=== PATIENT | male | born 1990 | race Hispanic/Latino ===

== ENCOUNTER 2018-03-12 10:10 | Inpatient (IN) | payer OTHER ==
[~2018-03-12] VITALS: Ht 175.3 cm; Wt 93.0 kg
[2018-03-12] MEDS ORDERED: ACETAMINOPHEN 325 MG TAB ONE ×2 (10:34→19:27)
[2018-03-12 10:39] LABS: BASOPHILS % (AUTO) 0.3 % (0.0-5.0); EOSINOPHILS % (AUTO) 0.1 % (0.0-8.0); HEMATOCRIT 44.5 % (42-54); LYMPHOCYTES % (AUTO) 11.3 % (21.0-51.0); MEAN CORPUSCULAR HGB CONC 33.4 g/dL (32.0-36.0); MEAN CORPUSCULAR VOLUME 89.7 fL (79-99); MONOCYTES % (AUTO) 9.2 % (3.0-13.0); NEUTROPHILS % (AUTO) 79.1 % (40.0-77.0); PLATELET COUNT (AUTO) 315 K/uL (130-400); RED BLOOD CELL COUNT(AUTO) 4.96 MIL/uL (4.50-6.20); RED CELL DISTRIBUTION WIDTH 13.6 % (11.0-15.5); WHITE BLOOD COUNT (AUTO) 21.5 K/uL (4.8-10.8)
[2018-03-12 10:49] LABS: APPEARANCE,URINE Turbid (CLEAR); BILIRUBIN,URINE Small (NEGATIVE); COLOR,URINE Dark Yellow (YELLOW); GLUCOSE, URINE (UA) Negative (NEGATIVE); KETONES,URINE Trace mg/dL (NEGATIVE); LEUKOCYTE ESTERASE ,URINE Large (NEGATIVE); NITRATE,URINE Negative (NEGATIVE); OCCULT BLOOD,URINE Large (NEGATIVE); PROTEIN,URINE POS 2+ (NEGATIVE)
[2018-03-12 10:54] LABS: CREATININE 1.1 mg/dL (0.5-1.5); POTASSIUM 4.4 mmol/L (3.5-5.1)
[2018-03-12 10:57] LABS: ALBUMIN 3.9 g/dL (3.5-5.0); BILIRUBIN,TOTAL 0.8 mg/dL (0.2-1.0); TOTAL PROTEIN, SERUM 8.9 g/dL (6.0-8.3)
[2018-03-12] MEDS ORDERED: IOHEXOL-350 75 ML VIAL IV ONE (10:59)
[2018-03-12 11:07] LABS: BACTERIA,URINE Moderate /HPF (None Seen)
[2018-03-12 11:08] LABS: SQUAMOUS EPITHELIAL CELL,UR 0-2 /HPF (0-2); WBC,URINE 51-100 /HPF (0-1)
[2018-03-12] MEDS ORDERED: DOXYCYCLINE 100MG+NS 250ML 250 ML IV ONE (12:12)
[2018-03-12] MEDS ORDERED: DOXYCYCLINE 100MG+NS 250ML 250 ML IV SCH (14:45)
[2018-03-12 15:11] VITALS: BP 125/74
[2018-03-12] MEDS: SODIUM CHLORIDE 0.9% 1000ML 1,000 ML IV SCH (15:17)
[2018-03-12] MEDS: KETOROLAC TROMETHAMINE 15MG/ML IV PRN ×2 (15:17→21:40)
[2018-03-12] MEDS ORDERED: DEXTROSE 50%-WATER 50 ML DISP.SYRIN IV PRN (18:45)
[2018-03-12] MEDS ORDERED: GENTAMICIN PROTOCOL PER PHARMACY IV SCH (18:45)
[2018-03-12] MEDS ORDERED: GLUCAGON 1MG KIT 1 MG ML IM PRN (18:45)
[2018-03-12] MEDS ORDERED: COMPOUND IV REFRIGERATED 1 EACH IVSOLN MISC PRN (19:15)
[2018-03-12] MEDS: LEVOFLOXACIN 500 MG/D5W 100 ML 100 ML IV SCH (19:29)
[2018-03-12 19:30] VITALS: BP 133/82
[2018-03-12] MEDS ORDERED: SULF1TAB42 PO (19:33)
[2018-03-12] MEDS: INSULIN HUMULIN R 100 UNIT/ML 3ML SQ SCH (21:00)
[2018-03-12] MEDS: GENTAMICIN SULFATE IV SCH (21:37)
[2018-03-12] MEDS: [UNRECOGNIZED DRUG - OTHER] IV SCH (21:37)
[2018-03-12 23:12] VITALS: BP 129/76
[2018-03-13] MEDS ORDERED: ACETAMINOPHEN 325 MG TAB PO PRN (02:00)
[2018-03-13 03:45] VITALS: BP 124/60
[2018-03-13] MEDS: GENTAMICIN SULFATE IV SCH ×3 (04:00→20:52)
[2018-03-13] MEDS: [UNRECOGNIZED DRUG - OTHER] IV SCH ×3 (04:00→20:52)
[2018-03-13] MEDS: SODIUM CHLORIDE 0.9% 1000ML 1,000 ML IV SCH ×2 (04:09→18:46)
[2018-03-13 04:54] LABS: HEMATOCRIT 39.9 % (42-54); MEAN CORPUSCULAR HEMOGLOBIN 31.3 pg (27.0-33.0); MEAN CORPUSCULAR VOLUME 91.9 fL (79-99); PLATELET COUNT (AUTO) 317 K/uL (130-400); RED BLOOD CELL COUNT(AUTO) 4.34 MIL/uL (4.50-6.20); RED CELL DISTRIBUTION WIDTH 13.6 % (11.0-15.5); WHITE BLOOD COUNT (AUTO) 17.1 K/uL (4.8-10.8)
[2018-03-13 05:16] LABS: HEMOGLOBIN A1C 5.8 % (4.0-6.0)
[2018-03-13] MEDS: INSULIN HUMULIN R 100 UNIT/ML 3ML SQ SCH ×4 (06:23→21:00)
[2018-03-13] MEDS: KETOROLAC TROMETHAMINE 15MG/ML IV PRN (07:58)
[2018-03-13] MEDS: PANTOPRAZOLE SODIUM 40 MG TABLET.DR PO SCH (07:58)
[2018-03-13 08:00] VITALS: BP 127/77
[2018-03-13 11:00] VITALS: BP 136/83
[2018-03-13] MEDS: ONDANSETRON HCL 4 MG/2 ML VIAL IVP PRN ×2 (12:02→20:52)
[2018-03-13] MEDS: TRAMADOL /APAP 37.5MG/325MG TAB PO PRN ×2 (12:02→18:45)
[2018-03-13 16:00] VITALS: BP 114/77
[2018-03-13] MEDS: LEVOFLOXACIN 500 MG/D5W 100 ML 100 ML IV SCH (18:45)
[2018-03-13 19:30] VITALS: BP 133/75
[2018-03-13] MEDS: NAPROXEN 500 MG TABLET PO SCH (21:44)
[2018-03-13 23:15] VITALS: BP 126/80
[2018-03-14] MEDS: TRAMADOL /APAP 37.5MG/325MG TAB PO PRN ×4 (01:01→20:23)
[2018-03-14 03:30] VITALS: BP 117/63
[2018-03-14] MEDS: GENTAMICIN SULFATE IV SCH ×3 (04:17→20:23)
[2018-03-14] MEDS: [UNRECOGNIZED DRUG - OTHER] IV SCH ×3 (04:17→20:23)
[2018-03-14 05:46] LABS: BASOPHILS % (AUTO) 0.4 % (0.0-5.0); EOSINOPHILS % (AUTO) 0.7 % (0.0-8.0); HEMATOCRIT 37.7 % (42-54); LYMPHOCYTES % (AUTO) 24.7 % (21.0-51.0); MEAN CORPUSCULAR HEMOGLOBIN 30.7 pg (27.0-33.0); MEAN CORPUSCULAR HGB CONC 33.6 g/dL (32.0-36.0); MEAN CORPUSCULAR VOLUME 91.3 fL (79-99); NEUTROPHILS % (AUTO) 65.2 % (40.0-77.0); PLATELET COUNT (AUTO) 280 K/uL (130-400); RED BLOOD CELL COUNT(AUTO) 4.13 MIL/uL (4.50-6.20); RED CELL DISTRIBUTION WIDTH 13.8 % (11.0-15.5); WHITE BLOOD COUNT (AUTO) 15.2 K/uL (4.8-10.8)
[2018-03-14 06:41] LABS: ERYTHROCYTE SEDIMENTATION RATE 72 MM/HR (0-15)
[2018-03-14] MEDS: INSULIN HUMULIN R 100 UNIT/ML 3ML SQ SCH ×2 (07:08→11:30)
[2018-03-14 08:00] VITALS: BP 107/51
[2018-03-14] MEDS: NAPROXEN 500 MG TABLET PO SCH ×2 (10:26→20:23)
[2018-03-14] MEDS: PANTOPRAZOLE SODIUM 40 MG TABLET.DR PO SCH (10:26)
[2018-03-14 11:00] VITALS: BP 130/78
[2018-03-14] MEDS: SODIUM CHLORIDE 0.9% 1000ML 1,000 ML IV SCH (12:00)
[2018-03-14 16:00] VITALS: BP 136/80
[2018-03-14] MEDS: LEVOFLOXACIN 500 MG/D5W 100 ML 100 ML IV SCH (18:45)
[2018-03-14 19:25] VITALS: BP 140/80
[2018-03-14] MEDS: ONDANSETRON HCL 4 MG/2 ML VIAL IVP PRN (20:23)
[2018-03-14 23:13] VITALS: BP 118/67
[2018-03-15] MEDS: GENTAMICIN SULFATE IV SCH ×3 (03:52→21:22)
[2018-03-15] MEDS: [UNRECOGNIZED DRUG - OTHER] IV SCH ×3 (03:52→21:22)
[2018-03-15] MEDS: TRAMADOL /APAP 37.5MG/325MG TAB PO PRN ×3 (03:53→23:45)
[2018-03-15 03:55] VITALS: BP 136/80
[2018-03-15 05:32] LABS: HEMATOCRIT 36.3 % (42-54); MEAN CORPUSCULAR HEMOGLOBIN 30.9 pg (27.0-33.0); MEAN CORPUSCULAR HGB CONC 33.8 g/dL (32.0-36.0); MEAN CORPUSCULAR VOLUME 91.4 fL (79-99); PLATELET COUNT (AUTO) 324 K/uL (130-400); RED BLOOD CELL COUNT(AUTO) 3.97 MIL/uL (4.50-6.20); WHITE BLOOD COUNT (AUTO) 12.2 K/uL (4.8-10.8)
[2018-03-15 05:47] LABS: CRP QUANTITATIVE 302.5 mg/L (0.00-9.0); POTASSIUM 4.1 mmol/L (3.5-5.1)
[2018-03-15 06:28] LABS: ERYTHROCYTE SEDIMENTATION RATE 80 MM/HR (0-15)
[2018-03-15 07:33] VITALS: BP 141/76
[2018-03-15] MEDS: ONDANSETRON HCL 4 MG/2 ML VIAL IVP PRN ×2 (08:17→23:43)
[2018-03-15] MEDS: SODIUM CHLORIDE 0.9% 1000ML 1,000 ML IV SCH ×3 (09:25→22:45)
[2018-03-15 11:07] VITALS: BP 126/77
[2018-03-15] MEDS: PANTOPRAZOLE 40 MG/VIAL IVP SCH (11:12)
[2018-03-15] MEDS: KETOROLAC TROMETHAMINE 30MG/ML IV SCH (11:13)
[2018-03-15 16:00] VITALS: BP 135/81
[2018-03-15] MEDS: LEVOFLOXACIN 500 MG/D5W 100 ML 100 ML IV SCH (17:31)
[2018-03-15 20:00] VITALS: BP 139/99
[2018-03-15] MEDS ORDERED: LACTULOSE 20 GM/30 ML UDCUP PO ONE (20:45)
[2018-03-15] MEDS ORDERED: LEVO100 PO (21:20)
[2018-03-15] MEDS ORDERED: CALC-190 PO (21:20)
[2018-03-15] MEDS ORDERED: [UNRECOGNIZED DRUG - CODE] PO (21:20)
[2018-03-15] MEDS ORDERED: PARO-37 PO (21:20)
[2018-03-15] MEDS ORDERED: LACT1CAP97 PO (21:20)
[2018-03-16] VITALS (7 sets, daily range): BP systolic 117–147; BP diastolic 66–87
[2018-03-16 04:03] LABS: HEMATOCRIT 37.9 % (42-54); MEAN CORPUSCULAR HEMOGLOBIN 30.1 pg (27.0-33.0); MEAN CORPUSCULAR VOLUME 91.1 fL (79-99); PLATELET COUNT (AUTO) 294 K/uL (130-400); RED BLOOD CELL COUNT(AUTO) 4.16 MIL/uL (4.50-6.20); RED CELL DISTRIBUTION WIDTH 13.6 % (11.0-15.5); WHITE BLOOD COUNT (AUTO) 13.3 K/uL (4.8-10.8)
[2018-03-16] MEDS: [UNRECOGNIZED DRUG - OTHER] IV SCH (04:19)
[2018-03-16] MEDS: GENTAMICIN SULFATE IV SCH (04:19)
[2018-03-16 04:23] LABS: ALBUMIN 2.9 g/dL (3.5-5.0); BILIRUBIN,TOTAL 0.4 mg/dL (0.2-1.0); CREATININE 1.1 mg/dL (0.5-1.5); POTASSIUM 4.1 mmol/L (3.5-5.1); TOTAL PROTEIN, SERUM 7.4 g/dL (6.0-8.3)
[2018-03-16 05:05] LABS: CRP QUANTITATIVE 219.5 mg/L (0.00-9.0)
[2018-03-16 05:48] LABS: ERYTHROCYTE SEDIMENTATION RATE 103 MM/HR (0-15)
[2018-03-16] MEDS: PANTOPRAZOLE 40 MG/VIAL IVP SCH (08:15)
[2018-03-16] MEDS: KETOROLAC TROMETHAMINE 30MG/ML IV SCH (08:15)
[2018-03-16] MEDS ORDERED: PANTOPRAZOLE SODIUM 40 MG TABLET.DR PO SCH (08:33)
[2018-03-16] MEDS: DOXYCYCLINE 100MG+NS 250ML 250 ML IV SCH ×2 (11:50→23:43)
[2018-03-16] MEDS: TRAMADOL /APAP 37.5MG/325MG TAB PO PRN ×2 (12:29→19:54)
[2018-03-16] MEDS: ONDANSETRON HCL 4 MG/2 ML VIAL IVP PRN (12:29)
[2018-03-16] MEDS: SODIUM CHLORIDE 0.9% 1000ML 1,000 ML IV SCH ×2 (13:31→23:42)
[2018-03-16] MEDS: ZOSYN 3.375GM+NS 50ML 50 ML IV SCH ×2 (14:53→23:43)
[2018-03-16] MEDS ORDERED: PROMETHAZINE HCL 25 MG/ML 1ML AMPULE IM PRN (15:00)
[2018-03-17 04:00] VITALS: BP 130/81
[2018-03-17 07:46] VITALS: BP 134/71
[2018-03-17] MEDS: ZOSYN 3.375GM+NS 50ML 50 ML IV SCH ×2 (07:50→15:08)
[2018-03-17] MEDS: SODIUM CHLORIDE 0.9% 1000ML 1,000 ML IV SCH (08:51)
[2018-03-17] MEDS: KETOROLAC TROMETHAMINE 30MG/ML IV SCH (08:51)
[2018-03-17 11:23] VITALS: BP 139/71
[2018-03-17] MEDS: DOXYCYCLINE 100MG+NS 250ML 250 ML IV SCH (12:45)
[2018-03-17 13:47] LABS: INR 0.95 (0.85-1.15)
[2018-03-17 16:00] VITALS: BP 130/69
[2018-03-17] MEDS ORDERED: POLYETHYLENE GLYCOL 3350 17 GM POWD.PACK PO SCH (21:00)
== END 2018-03-17 18:01 | DRG 872 ==
LOC: EDH 10:10 → EDHIP 13:45 → 4BH 14:51
PROVIDERS: ADMIT Hospitalist; ATTEND Hospitalist
DX: A41.50 Gram-negative sepsis, unspecified (principal); E87.1 Hypo-osmolality and hyponatremia; N39.0 Urinary tract infection, site not specified; N45.3 Epididymo-orchitis; F12.90 Cannabis use, unspecified, uncomplicated; K59.01 Slow transit constipation; E11.65 Type 2 diabetes mellitus with hyperglycemia; N43.3 Hydrocele, unspecified; N50.89 Other specified disorders of the male genital organs; E66.9 Obesity, unspecified; Z68.30 Body mass index [BMI] 30.0-30.9, adult; Z87.11 Personal history of peptic ulcer disease; Z83.3 Family history of diabetes mellitus
CPT/HCPCS: 36415; 74177; 76870; 80048; 80053; 80170; 80339; 81001; 82948; 83036; 83605; 85025; 85027; 85610; 85651; 86140; 87040; 87088; 87486; 87797; C9113; J1580; J1885; J1956; J2405; J2543; J3490; J7030; Q9967